=== PATIENT | male | born 1940 | race Caucasian/White ===

== ENCOUNTER 2024-09-02 13:49 | Emergency (ER) | payer OTHER, SELFPAY ==
[2024-09-02 13:56] VITALS: BP 147/79
[2024-09-02 14:33] LABS: % Basophils 0.5 % (0-2); % Eosinophils 1.8 % (0-6); % Immature Granulocytes 0.2 % (0-0.5); % Monocytes 8.6 % (1.7-9.3); % Neutrophils 63.9 % (42.2-75.2); Absolute Eosinophils 0.1 10^3/uL (0-0.7); Absolute Lymphocytes 1.4 10^3/uL (1.2-3.4); Absolute Monocytes 0.5 10^3/uL (0.1-0.6); Absolute Neutrophils 3.6 10^3/uL (1.4-6.5); Hematocrit 41.4 % (39.0-52.0); Mean Corp Hgb Conc. 33.8 g/dL (33.0-37.0); Mean Corpuscular Hgb 28.7 pg (27.0-31.0); Mean Platelet Volume 12.6 fL (7.4-10.4); Nucleated Red Blood Cells % 0 % (-); Platelet Count 128 10^3/uL (130-400); Red Blood Cell Count 4.87 10^6/uL (4.70-6.10); Red Cell Dist. Width 13.3 % (11.5-14.5); White Blood Cell Count 5.7 10^3/uL (4.8-10.8)
[2024-09-02 14:50] LABS: ALT (SGPT) 43 U/L (0-50); AST (SGOT) 39 U/L (17-59); Albumin 4.4 g/dl (3.5-5.0); Alkaline Phosphatase 62 U/L (38-126); Blood Urea Nitrogen 24 mg/dl (9-20); Calcium 10.1 mg/dl (8.4-10.2); Carbon Dioxide 20 mmol/L (22-30); Chloride 107 mmol/L (98-107); Glucose 84 mg/dl (70-99); Potassium 4.4 mmol/L (3.5-5.1); Sodium 142 mmol/L (135-145); Total Bilirubin 1.5 mg/dl (0.2-1.3); Total Protein 7.1 g/dl (6.3-8.2); eGFR > 60.00
[2024-09-02 14:58] LABS: Troponin I < 0.012 ng/ml
[2024-09-02 18:02] VITALS: BP 98/79
[2024-09-02 18:20] VITALS: BP 127/94
--- NOTE | 2024-09-02 18:25 | ED.GENMED ---
History of Present Illness
General
Chief Complaint: Chest Pain
Source: patient
Exam Limitations: none
Time Seen by Provider: 09/02/24 18:12
Nursing documentation reviewed up to this point in time: agreed with
History of Present Illness
History of Present Illness:
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
Denies lightheadedness, n/v/d/c, denies SOB, abd pain. Denies feeling palpitations.
Past History
Past History
ED Past Medical History: GERD, HTN, Hypercholesterolemia and Other (Mitral valve prolapse, prostatic hypertrophy)
ED Past Surgical History: Orthopedic and Other (Hernia repair)
Social History
Tobacco: Non-smoker
Alcohol: Occasional
Personal:
Living: with family
Employment: Retired
Review of Systems
Review of Systems
Allergies reviewed?: Yes
All Other Systems: ROS reviewed and negative except as documented in HPI and ROS
Constitutional: Denies fever or fatigue
Respiratory: Denies trouble breathing
Cardiac: Reports chest pain; Denies diaphoresis or palpitations
ABD/GI: Denies abdominal pain, nausea, vomiting or diarrhea
: Denies dysuria or difficulty voiding
Musculoskeletal: Reports no symptoms
Skin: Reports no symptoms
Neurological: Reports no symptoms
Phy Exam
Physical Exam
Physical Exam:
GENERAL: No acute distress. A&Ox3.
CONSTITUTIONAL: Afebrile.
EYES: clear, conjunctivae normal
ENMT: moist mucus membranes, Pharynx nl
RESPIRATORY: Regular respirations, nonlabored, lungs clear.
CARDIOVASCULAR: Regular rate and rhythm, + murmur, no rubs.
GI: Soft, nontender, normal BS
MUSCULOSKELETAL: Moves with ease. Well perfused. No edema
SKIN: Warm, dry, pink
PSYCH: Normal mood and affect. Well kept, interactive and appropriate
NEUROLOGIC: Awake, alert and oriented. No focal neurological deficits
Scores
Heart Score for Chest Pain Patients
STEMI patient?: Not applicable
Course
Orders/Labs/Results
Orders:
Orders
09/02/24 13:51
Electrocardiogram (*1) Urgent
Reason for Study: Chest Pain
EKG- Treatment ONCE
09/02/24 14:08
Complete Blood Count/With Diff Urgent
Comprehensive Metabolic Panel Urgent
Troponin I Urgent
09/02/24 15:35
CR Chest - 2 Views Urgent
Comment:
Reason For Exam: CP
09/02/24 18:32
Troponin I Urgent
Abnormal Lab Results
09/02/24
14:08
Plt Count 128 L 10^3/uL
(130-400)
MPV 12.6 H fL
(7.4-10.4)
Carbon Dioxide 20 L mmol/L
(22-30)
BUN 24 H mg/dl
(9-20)
Total Bilirubin 1.5 H mg/dl
(0.2-1.3)
09/02/24 14:08
09/02/24 14:08
Vital Signs
Initial and Last Documented VS:
Initial Vital Signs
Temp Pulse Resp BP Pulse Ox
98.2 F 69 16 147/79 98
09/02/24 13:56 09/02/24 13:56 09/02/24 13:56 09/02/24 13:56 09/02/24 13:56
Last Documented Vital Signs
Temp Pulse Resp BP Pulse Ox
98.2 F 70 17 117/76 98
09/02/24 13:56 09/02/24 19:30 09/02/24 19:30 09/02/24 19:00 09/02/24 13:56
MDM/Problems Addressed
Differential Diagnosis Includes:
ACS, GERD
MDM/Problems Addressed:
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
Denies lightheadedness, n/v/d/c, denies SOB, abd pain. Denies feeling palpitations.
EKG: A fib rate 60-80
CBC normal
CMP with no clinically significant abnormality
Troponin normal
Patient on Eliquis for DVT, PE
Patient states he has never been in atrial fibrillation
7:30 PM:
Troponin #2 within normal limits
Chest x-ray NAD
Per pt, afib is new, rate controlled, on Eliquis 5 mg BID already, VSS, cardiac workup otherwise neg.
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
Case discussed with Dr. Chapman who agrees pt can be discharged.
Pt hx of GERD, has Protonix at home
[facility] at [place] Dr. Wade consulted, discussed new onset a fib rate controlled, agrees pt can be discharged and someone from his office will reach out to him tomorrow.
Chronic conditions affecting care: HTN
*Critical Care Note
Total Time (30-74mins, 75-104mins- exclusive of procedures): Not Applicable
ED Attending Note
-
Portions of this chart may have been created with voice recognition software.� Occasional wrong word or��sound alike� substitutions may have occurred due to the inherent limitations of voice recognition software.
Discharge Plan
Departure
Patient Disposition: Home (Routine Discharge)
Date of Disposition: 09/02/24
Time of Disposition: 19:51
Patient with high blood pressure during this ER visit?: No
Condition: Good
Discharge Problem:
Atypical chest pain, GERD (gastroesophageal reflux disease), Atrial fibrillation
Instructions: Atrial fibrillation, Chest Pain That Is Not Caused by the Heart (DC), Acid Reflux and GERD in Adults (DC)
Prescriptions:
No Action
atorvastatin [Lipitor] 20 mg Tablet
20 mg PO DAILY
tamsulosin [Flomax] 0.4 mg Capsule
0.4 mg PO DAILY
pantoprazole [Protonix] 40 mg Tablet,Delayed Release (Dr/Ec)
40 mg PO DAILY
lisinopril 5 mg Tablet
5 mg PO DAILY
finasteride 5 mg Tablet
5 mg PO DAILY
omega-3 fatty acids Capsule
1,250 mg PO BID
Patient Comments:
Pt unsure if correct dose
Rx Instructions:
Two pills in the morning, two in the evening
Eliquis 5 mg tablet
10 mg PO BID Qty: 60 0RF
Rx Instructions:
take 10mg BID until 07/01/23
starting 07/02/23 morning, start 5mg BID
Referrals:
Corina Phelan PA-C [Family Provider] -
Gilberto Wade MD [Active] - Tomorrow
Activity Restrictions/Additional Instructions:
As we discussed, I spoke with Dr. Ponce and he will have someone from his office reach out to you tomorrow. Take a copy of your EKG with you to your next appointment.
Return here immediately for worsening chest pain, feeling lightheaded or dizzy, chest pain associated with breaking out in a sweat or lightheadedness or nausea and vomiting.
Start your Protonix up again as it was previously prescribed and let your doctor know if it helps
Interventions
Interventions:
*Risk Screen - Suicide Last Done: 09/02/24 13:56
*General Assessment Last Done: 09/02/24 13:56
*Neglect/Abuse Screening Last Done: 09/02/24 13:56
ED- Fall Risk Assessment Last Done: 09/02/24 20:05
*ED COVID-19 Vaccine History Last Done: 09/02/24 18:04
*Nursing Disposition Last Done: 09/02/24 20:05
ED- Cardiac Assessment Last Done: 09/02/24 18:04
Discharge Date and Time
Discharge Date/Time: 09/02/24 20:06
Print Language: GUYANESE
[2024-09-02 19:00] VITALS: BP 117/76
[2024-09-02 19:12] LABS: Troponin I < 0.012 ng/ml
== END 2024-09-02 20:06 | disposition home or self-care (01) ==
LOC: EMR 13:49
PROVIDERS: Emergency Medicine; Registered Nurse; EMERGENCY PHYSICIAN Emergency Medicine; FAMILY PHYSICIAN Physician Assistant Medical
DX: R07.89 Other chest pain (principal); K21.9 Gastro-esophageal reflux disease without esophagitis; I48.91 Unspecified atrial fibrillation; I10 Essential (primary) hypertension; E78.00 Pure hypercholesterolemia, unspecified; R01.1 Cardiac murmur, unspecified; I34.1 Nonrheumatic mitral (valve) prolapse; N40.0 Benign prostatic hyperplasia without lower urinary tract symptoms; Z79.01 Long term (current) use of anticoagulants; Z86.711 Personal history of pulmonary embolism; Z86.718 Personal history of other venous thrombosis and embolism
CPT/HCPCS: 99283; 71046; 80053; 84484; 85025; 93005

== ENCOUNTER → 2024-09-22 07:40 | Outpatient (REF) | payer OTHER, SELFPAY | LOC: DHCBC/DCA 07:40 | PROVIDERS: ATTENDING PHYSICIAN Internal Medicine Cardiovascular Disease; FAMILY PHYSICIAN Family Medicine | DX: R07.89 Other chest pain (principal) | CPT/HCPCS: 78452; 93017; A9500; J2785 ==